=== PATIENT | female | born 1980 | race African-American/Black ===

== ENCOUNTER 2017-07-06 00:06 | Inpatient (IN) | payer MEDICAID, OTHER ==
[~2017-07-06] VITALS: Ht 172.7 cm; Wt 74.8 kg
[2017-07-06 01:29] LABS: BASOPHILS % 0.4 % (0.0-2.0); EOSINOPHILS % 0.4 % (0.0-5.0); LYMPHOCYTES % 9.6 % (20.0-50.0); MEAN CORPUSCULAR HEMOGLOBIN 17.1 pg (28.0-32.0); MEAN CORPUSCULAR VOLUME 64.9 fL (81.0-99.0); MEAN PLATELET VOLUME 8.9 fl (7.4-10.4); MONOCYTES % 3.8 % (2.0-8.0); NEUTROPHILS % 85.8 % (40.0-76.0); RED CELL DISTRIBUTION WIDTH 35.9 % (11.6-14.6)
[2017-07-06 01:32] LABS: HEMATOCRIT. 13.6 % (36.0-48.0); HEMOGLOBIN. 3.6 g/dL (12.0-16.0); PLATELET 31 x1000/uL (130-400)
[2017-07-06 01:35] LABS: CHLORIDE 110 mEq/L (98-107)
[2017-07-06 01:46] LABS: B-HCG QUANTITATIVE < 1 mIU/mL (<3); CARBON DIOXIDE 22 mEq/L (21-32)
[2017-07-06] MEDS ORDERED: SODIUM CHLORIDE 0.9% 1,000 ML IV ONE (01:51)
[2017-07-06] MEDS ORDERED: SODIUM CHLORIDE 0.9% 1,000 ML IV SCH (05:00)
[2017-07-06] MEDS ORDERED: MAGNESIUM/ALUMINUM HYDROXIDE/SIMETHICONE 30ML UDC PO PRN (10:45)
[2017-07-06] MEDS ORDERED: ONDANSETRON HCL 4MG/2ML VIAL IV PRN (10:45)
[2017-07-06] MEDS ORDERED: IPRATROPIUM/ALBUTEROL 0.5-3(2.5)MG/3ML NEB INH PRN (10:45)
[2017-07-06] MEDS ORDERED: CLONIDINE 0.1MG TABLET PO PRN (10:45)
[2017-07-06] MEDS ORDERED: DOCUSATE SODIUM 100MG CAPSULE PO PRN (10:45)
[2017-07-06 11:52] LABS: CHLORIDE 113 mEq/L (98-107)
[2017-07-06 11:59] LABS: CARBON DIOXIDE 22 mEq/L (21-32); TOTAL IRON BINDING CAPACITY 322 ug/dL (250-450)
[2017-07-06 12:00] VITALS: BP 105/51
[2017-07-06 12:00] LABS: *AMPHETAMINES SCREEN URINE NEGATIVE (NEGATIVE); *BARBITURATES SCREEN URINE NEGATIVE (NEGATIVE); *BENZODIAZEPINES SCREEN URINE NEGATIVE (NEGATIVE); *COCAINE SCREEN URINE NEGATIVE (NEGATIVE); METHADONE URINE SCREEN NEGATIVE (NEGATIVE); OPIATES URINE SCREEN NEGATIVE (NEGATIVE); PHENCYCLIDINE URINE SCREEN NEGATIVE (NEGATIVE)
[2017-07-06 12:12] LABS: CANNABINOID URINE SCREEN PRESUMTIVE POSITIVE (NEGATIVE)
[2017-07-06 12:30] VITALS: BP 105/51
[2017-07-06] MEDS ORDERED: INFLUENZA VIRUS VACCINE 0.5ML SYR IM ONE (13:45)
[2017-07-06] MEDS: IRON SUCROSE COMPLEX 100 MG/5 ML ML IV SCH (15:06)
[2017-07-06] MEDS: ACETAMINOPHEN 325MG TABLET PO PRN (15:11)
[2017-07-06 16:00] VITALS: BP 104/57
[2017-07-06 17:21] LABS: CREATINE KINASE 75 IU/L (26-192); CREATINE KINASE MB FRACTION 0.6 ng/mL (0.5-3.6); TROPONIN I < 0.02 ng/mL (0.00-0.04)
[2017-07-06 19:47] LABS: HEMATOCRIT 15.5 % (36.0-48.0); HEMOGLOBIN 4.7 g/dL (12.0-16.0)
[2017-07-06 20:00] VITALS: BP 109/54
[2017-07-07] VITALS (19 sets, daily range): BP systolic 96–135; BP diastolic 43–66
[2017-07-07 01:02] LABS: CREATINE KINASE 71 IU/L (26-192); CREATINE KINASE MB FRACTION 0.6 ng/mL (0.5-3.6); TROPONIN I < 0.02 ng/mL (0.00-0.04)
[2017-07-07] MEDS ORDERED: DEXTROSE 50% WATER 50ML SYRINGE IV PRN (06:00)
[2017-07-07] MEDS: ACETAMINOPHEN 325MG TABLET PO PRN (06:01)
[2017-07-07] MEDS: BLOOD SUGAR DIAGNOSTIC STRIP TEST SCH ×3 (06:04→17:10)
[2017-07-07] MEDS: INSULIN LISPRO 100 UNITS/ML SUBCUT SCH ×3 (06:05→17:20)
[2017-07-07 07:52] LABS: BASOPHILS % 0.7 % (0.0-2.0); EOSINOPHILS % 0.5 % (0.0-5.0); LYMPHOCYTES % 14.2 % (20.0-50.0); MEAN CORPUSCULAR HEMOGLOBIN 23.9 pg (28.0-32.0); MEAN CORPUSCULAR VOLUME 74.2 fL (81.0-99.0); MEAN PLATELET VOLUME 8.8 fl (7.4-10.4); MONOCYTES % 6.3 % (2.0-8.0); NEUTROPHILS % 78.3 % (40.0-76.0); PLATELET 313 x1000/uL (130-400); RED BLOOD CELL COUNT 2.52 mill/uL (4.2-5.4); RED CELL DISTRIBUTION WIDTH 32.2 % (11.6-14.6)
[2017-07-07 08:04] LABS: HEMATOCRIT. 18.7 % (36.0-48.0)
[2017-07-07] MEDS ORDERED: DIPHENHYDRAMINE 50MG CAPSULE PO SCH (08:30)
[2017-07-07] MEDS ORDERED: ACETAMINOPHEN 325MG TABLET PO SCH (08:30)
[2017-07-07] MEDS ORDERED: THIAMINE HCL 100MG TABLET PO SCH (09:00)
[2017-07-07] MEDS ORDERED: FOLIC ACID 1MG TABLET PO SCH (09:00)
[2017-07-07] MEDS ORDERED: MULTIVITAMINS,THER W-MINERALS TABLET PO SCH (09:00)
[2017-07-07] MEDS: IRON SUCROSE COMPLEX 100 MG/5 ML ML IV SCH (14:13)
== END 2017-07-07 18:20 | disposition home or self-care (01) | DRG 532 ==
LOC: ER 00:06 → EDBEDREQ 05:04 → EDBEDREQTM 05:04 → ENRESERV 09:28 → 8WST 12:02
PROVIDERS: ADMIT Internal Medicine; ATTEND Internal Medicine
PROC: 30233N1 Transfusion of Nonautologous Red Blood Cells into Peripheral Vein, Percutaneous Approach (ICD-10-PCS; principal; 2017-07-06)
DX: N92.0 Excessive and frequent menstruation with regular cycle (principal); I95.9 Hypotension, unspecified; D69.6 Thrombocytopenia, unspecified; E44.1 Mild protein-calorie malnutrition; D62 Acute posthemorrhagic anemia; E83.51 Hypocalcemia; F12.90 Cannabis use, unspecified, uncomplicated; E11.9 Type 2 diabetes mellitus without complications; Z98.891 History of uterine scar from previous surgery; Z86.32 Personal history of gestational diabetes
CPT/HCPCS: 36415; 36430; 76830; 76856; 80048; 80053; 80061; 80305; 82550; 82553; 82962; 83036; 83540; 83550; 83735; 84443; 84484; 84702; 85014; 85018; 85025; 85044; 85049; 85362; 85384; 86850; 86900; 86920; 90686; 93970; 99291; J7030; J7040; J7050; P9016; P9034; Q0163